=== PATIENT | female | born 1990 | race Caucasian/White ===

== ENCOUNTER 2020-08-01 23:09 | Emergency (ER) | payer OTHER ==
[~2020-08-01] VITALS: Ht 157.5 cm; Wt 62.9 kg
[2020-08-01 23:20] VITALS: BP 152/109
[2020-08-01] MEDS ORDERED: CEPH500C PO (23:29)
[2020-08-01] MEDS ORDERED: TRAM-48 PO (23:29)
--- NOTE | 2020-08-01 23:30 | PHYS DOC ---
General Adult EDM: Chief Complaint: UPPER EXTREMITY INJURY HPI: HPI: Patient is a 29 year old female presents with the chief complaint of right arm pain. Saturday patient injured right arm while on water slide. Patient has 8cm abrasion with surround cellulities of right arm. Home treatment includes neosporin and motrin. Review of Systems: Review of Systems: Constitutional: Denies fever or chills. [] Eyes: Denies change in visual acuity. [] HENT: Denies nasal congestion or sore throat. [] Respiratory: Denies cough or shortness of breath. [] Cardiovascular: Denies chest pain or edema. [] GI: Denies abdominal pain, nausea, vomiting, bloody stools or diarrhea. [] : Denies dysuria. [] Musculoskeletal: Denies back pain or joint pain. [] Integument: Denies rash. [positive cellulitis Neurologic: Denies headache, focal weakness or sensory changes. [] Endocrine: Denies polyuria or polydipsia. [] Lymphatic: Denies swollen glands. [] Psychiatric: Denies depression or anxiety. [] Heart Score: C/O Chest Pain: N/A Risk Factors: Risk Factors: DM, Current or recent (<one month) smoker, HTN, HLP, family history of CAD, obesity. Risk Scores: Score 0 - 3: 2.5% MACE over next 6 weeks - Discharge Home Score 4 - 6: 20.3% MACE over next 6 weeks - Admit for Clinical Observation Score 7 - 10: 72.7% MACE over next 6 weeks - Early Invasive Strategies Physical Exam: PE: General: alert, no acute distress. Skin: warm, dry and intact. Wound right arm 8 cm in length surrounding cellulitis Head:: Normocephalic, atraumatic. Neck: Trachea midline. Eyes: EOMI, Normal conjunctiva, No drainage CARDIOVASCULAR: Regular rate and rhythm RESPIRATORY: No respiratory distress Back: Full range of motion. MUSCULOSKELETAL: Full range of motion of bilateral upper and lower extremities. GASTROINTESTINAL: Abdomen soft without rebound or guarding. NEUROLOGICAL: Alert and noted to person, place and time. No neurological deficits observed Psychiatric: Cooperative. Normal judgment EKG: EKG: [] Radiology/Procedures: Radiology/Procedures: [] Course & Med Decision Making: Course & Med Decision Making Pertinent Labs and Imaging studies reviewed. (See chart for details) [] Prescription Keflex Ultram patient to continue keeping wound clean with soap and water may continue [id number] Neosporin in addition to Tylenol and ibuprofen. Thao Disclaimer: Thao Disclaimer: This electronic medical record was generated, in whole or in part, using a voice recognition dictation system. Departure Departure Impression: Primary Impression: Cellulitis of arm, right Disposition: HOME / SELF CARE / HOMELESS Condition: STABLE Patient Instructions: Cellulitis Scripts Tramadol Hcl (ULTRAM) 50 Mg Tablet 50 MG PO Q6HRS PRN for PAIN for 14 Days, #56 TAB 0 Refills Prov: VIKKI GONZALES DO 08/01/20 Cephalexin (CEPHALEXIN) 500 Mg Capsule 1 CAP PO QID, #40 CAP Prov: VIKKI GONZALES DO 08/01/20 VIKKI GONZALES DO Aug 01, 2020 23:29
== END 2020-08-01 23:36 | disposition home or self-care (01) ==
LOC: ER 23:09
DX: L03.113 Cellulitis of right upper limb (principal)
CPT/HCPCS: 99283